=== PATIENT | male | born 1980 | race Caucasian/White ===

== ENCOUNTER 2025-01-27 14:35 | Emergency (ER) | payer BC, SELFPAY ==
[2025-01-27 14:36] VITALS: BP 133/96; PULSE 112; RESP 18; TEMP 36.7; O2SAT 95
--- OUTSIDE RECORDS SUMMARY | 2025-01-27 14:37 | XMS_ITS | Clinical Summary ---
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 Name Role Phone Unavailable Primary Care Provider Unavailabl e Social History Tobacco Use Types Packs/Day Years Used Date Smoking Tobacco: Never Assessed Sex and Gender Information Value Date Recorded Sex Assigned at Not on file Legal Sex Male 2:22 PM [employer] Gender Identity Not on file Sexual Orientation Not on file Plan of Treatment Health Maintenance Due Date Last Done Comments DTAP/TDAP/TD VACCINES (1 - Tdap) 06/02/1998 HEPATITIS B VACCINES (1 of 3 - 19+ 3-dose series) 04/1998 HPV VACCINES (1 - 3-dose SCDM series) 06/02/2006 COLORECTAL SCREENING 06/02/2024 Colorectal Cancer Screening 06/02/2024 FIT-DNA Q 3 years 06/02/2024 FIT/FOBT Q 1 year 06/02/2024 Flex Sig/CT Colonography Q 5 years 06/02/2024 INFLUENZA VACCINE (#1) 2024 Insurance [facility]
--- NOTE | 2025-01-27 14:47 | ED.HEATRA ---
HPI - Head Injury General Chief complaint: Head Injury Stated complaint: head laceration Time Seen by Provider: 01/27/25 14:47 Source: patient Mode of arrival: ambulatory Limitations: no limitations History of Present Illness HPI Narrative: Patient was pulling down on a piece of equipment, hit the top of his head causing laceration and bleeding prior to arrival. He denies loss of consciousness, headache, neck pain, back pain or any other injuries. Last tetanus shot was 2022 Complaint: head injury Related Data Allergies Allergy/AdvReac Type Severity Reaction Status Date / Time No Known Drug Allergies Allergy Unknown Verified 07/13/15 10:14 Review of Systems Review of Systems: All systems reviewed & are unremarkable except as noted in HPI and below Exam Narrative: General appearance: Well-developed, well-nourished Skin: Normal color Head: Normocephalic, 3 cm laceration, superficial/subcutaneous, 3 mm gapping, clean, Eyes: Clear conjunctiva ENT: Oropharynx normal, ears normal, nose normal Neck: Supple, nontender Neurologic: Alert and oriented ?3, [employer]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, no gross motor deficit Procedures Laceration Laceration 1: Date: 01/27/25 Site: scalp Size (cm): 3 Description: linear Depth: simple, single layer Local Anesthetic: none Pre-repair: wound explored and irrigated ====== Skin Level ====== Skin layer closed with: josé (x 4) ====== Subcutaneous Layer ====== ====== Muscle Layer ====== ====== Tendon Layer ====== MDM - Head Injury MDM Narrative Medical decision making narrative: Scalp laceration, no other injuries No imaging are required at this time Four josé, Neosporin, The pt was discharged to home.the pt,s condition upon discharge was fair,education was provided to the pt in reference to the final impression,discharge study results,treatment,prognosis and need for follow up . Differential Diagnosis Differential diagnosis: Likely closed head injury and other (Scalp laceration) Critical Care Time Critical Care Time Critical Care Time: No Discharge Plan Discharge Clinical Impression: Laceration of scalp, CHI (closed head injury) Patient Disposition: Home Condition: Stable Instructions: Head Injury (ED), Head Laceration (ED) Additional Instructions: Return if symptoms are worsening , call your family physician for appointment, take Tylenol, ibuprofen as as needed for aches and pain, continue home medications. Topical Neosporin 3 times a day for the next 3 days Remove josé in 10 days Patient Language: Occitan Follow-up/Referrals: Hood Novoa MD [Primary Care Provider, Internal Medicine]
[2025-01-27] MEDS: NEOMYCIN/POLYMYXIN/BACITRACIN OINTMENT PACKET 1 PACKET (14:53)
--- NOTE | 2025-01-27 15:02 | ED_ITS ---
HPI - General Adult General Chief complaint: Head Injury Stated complaint: head laceration Time Seen by Provider: 01/27/25 14:47 Source: patient Mode of arrival: ambulatory Limitations: no limitations Related Data Allergies Allergy/AdvReac Type Severity Reaction Status Date / Time No Known Drug Allergies Allergy Unknown Verified 07/13/15 10:14 Course Vital Signs Vital signs: Vital Signs Temperature 36.7 C 01/27/25 14:36 Pulse Rate 112 H 01/27/25 14:36 Respiratory Rate 18 01/27/25 14:36 Blood Pressure 133/96 H 01/27/25 14:36 Pulse Oximetry 95 01/27/25 14:36 Oxygen Delivery Room Air 01/27/25 14:36 Temperature 36.7 C 01/27/25 14:36 Pulse Rate 112 H 01/27/25 14:36 Respiratory Rate 18 01/27/25 14:36 Blood Pressure 133/96 H 01/27/25 14:36 Pulse Oximetry 95 01/27/25 14:36 Oxygen Delivery Room Air 01/27/25 14:36 Medical Decision Making Vital Signs Vital Signs: Vital Signs Temperature 36.7 C 01/27/25 14:36 Pulse Rate 112 H 01/27/25 14:36 Respiratory Rate 18 01/27/25 14:36 Blood Pressure 133/96 H 01/27/25 14:36 Pulse Oximetry 95 01/27/25 14:36 Oxygen Delivery Room Air 01/27/25 14:36 Temperature 36.7 C 01/27/25 14:36 Pulse Rate 112 H 01/27/25 14:36 Respiratory Rate 18 01/27/25 14:36 Blood Pressure 133/96 H 01/27/25 14:36 Pulse Oximetry 95 01/27/25 14:36 Oxygen Delivery Room Air 01/27/25 14:36 Discharge Plan Discharge Clinical Impression: Laceration of scalp, CHI (closed head injury) Patient Disposition: Home Condition: Stable Instructions: Head Injury (ED), Head Laceration (ED) Additional Instructions: Return if symptoms are worsening , call your family physician for appointment, take Tylenol, ibuprofen as as needed for aches and pain, continue home medications. Topical Neosporin 3 times a day for the next 3 days Remove josé in 10 days Patient Language: Bulgarian Follow-up/Referrals: Hood Novoa MD [Primary Care Provider, Internal Medicine]
--- NOTE | 2025-01-27 15:19 | PC.NURSE ---
On 01/27/25, the student, [SHAYY CALDERON ], provided care and completed [facility] documentation on this patient. I have reviewed the student's documentation and agree with the findings.
== END 2025-01-27 15:00 | disposition home or self-care (01) ==
LOC: CHSED 15:00
PROVIDERS: Emergency Provider Emergency Medicine; PCP Internal Medicine
DX: S01.01XA Laceration without foreign body of scalp, initial encounter (principal); W45.8XXA Other foreign body or object entering through skin, initial encounter
CPT/HCPCS: 12002; 99283